=== PATIENT | male | born 1990 | race Hispanic/Latino ===

== ENCOUNTER 2018-05-24 08:47 | Emergency (ER) | payer BC, OTHER ==
[~2018-05-24] VITALS: Ht 182.9 cm; Wt 96.2 kg
== END 2018-05-24 09:42 | disposition home or self-care (01) ==
LOC: ER 08:47
DX: M54.41 Lumbago with sciatica, right side (principal); X50.0XXA Overexertion from strenuous movement or load, initial encounter
CPT/HCPCS: 99282